=== PATIENT | male | born 1955 | race Caucasian/White ===

== ENCOUNTER 2021-03-21 16:24 | Outpatient (REF) | payer OTHER, SELFPAY ==
[2021-03-23 16:45] LABS: HLA-B27 Result Negative
[2021-03-27 18:29] LABS: Testosterone, Free 6.14 ng/dL (3.67-13.9); Testosterone, Total 267 ng/dL (240-950)
== END 2021-03-21 16:25 | disposition home or self-care (01) ==
LOC: LBN 16:24
PROVIDERS: PCP Family Medicine; Visit Provider Family Medicine
DX: M46.1 Sacroiliitis, not elsewhere classified (principal); Z00.00 Encounter for general adult medical examination without abnormal findings
CPT/HCPCS: 84402; 84403; 86812

== ENCOUNTER 2022-11-19 02:51 | Outpatient (CLI) | payer MEDICARE, SELFPAY ==
[2022-11-19 14:04] LABS: Abs Immature Grans 0.04 10^3/uL (0.0-0.06); Absolute Basophil Count 0.03 10^3/uL (0.0-0.2); Absolute Eosinophil Count 0.22 10^3/uL (0.0-0.7); Absolute Lymphocyte Count 1.46 10^3/uL (1.2-3.4); Absolute Monocyte Count 0.56 10^3/uL (0.1-0.8); Absolute Neutrophil Count 4.25 10^3/uL (1.2-6.7); Basophils % 0.5; Eosinophils % 3.4; HCT 41.5 % (40.0-50.0); HGB 15.3 g/dL (13.5-17.5); Immature Grans % 0.6; Lymphocytes % 22.3; MCHC 36.9 % (32.0-36.0); MCV 92 fL (80-95); MPV 9.1 fL (8.0-11.0); Monocytes % 8.5; Neutrophils % 64.7; Platelet Count 167 10^3/uL (130-400); RDW 11.8 % (11.8-14.1); RDW-SD 39.5 fL; WBC 6.56 10^3/uL (4.4-10.8)
[2022-11-19 14:31] LABS: ALT 23 U/L (16-63); AST 22 U/L (15-37); Albumin 3.9 g/dL (3.4-5.0); Alkaline Phosphatase 67 U/L (46-116); Anion Gap 6.7 mmol/L (3-11); BUN 23 mg/dL (7-18); Bilirubin, Total 1.5 mg/dL (0.2-1.0); CO2 29.3 mmol/L (21.0-32.0); CREATININE 1.1 mg/dL (0.70-1.30); Calcium 8.8 mg/dL (8.5-10.1); Chloride 104 mmol/L (98-107); Glucose 113 mg/dL (74-106); Sodium 140 mmol/L (136-145)
[2022-11-19 19:53] LABS: Lab Add On Test DONE
[2022-11-19 21:09] LABS: Hemoglobin A1C 4.7 % (<5.7)
== END 2022-11-19 02:52 | disposition home or self-care (01) ==
LOC: LBO 02:51
PROVIDERS: PCP Family Medicine; Visit Provider Family Medicine
DX: E03.9 Hypothyroidism, unspecified; R10.9 Unspecified abdominal pain; R73.9 Hyperglycemia, unspecified
CPT/HCPCS: 36415; 80053; 83036; 84443; 85025

== ENCOUNTER 2024-02-20 01:12 | Outpatient (CLI) | payer MEDICARE, SELFPAY ==
--- NOTE | 2024-02-20 | DI.US_ITS ---
Exam(s) US BREAST LT COMPLETE MG MAMMO DIAGNOSTIC BI EXAM: MG MAMMO DIAGNOSTIC BI AND COMPLETE LEFT BREAST ULTRASOUND CLINICAL HISTORY: evaluate pathology, LATERAL TO AREOLA LT BREAST MASS, N63.20. TECHNIQUE: BILATERAL CC AND MLO mammographic images were obtained with 3D tomosynthesis technique an d utilizing computer aided detection (CAD). COMPLETE LEFT BREAST ULTRASOUND was performed, including all 4 quadrants as well as the left axilla. COMPARISON: None. This 68-year-old male patient feels pain and fullness behind the left nipple. De nies nipple discharge FINDINGS: DIAGNOSTIC BILATERAL MAMMOGRAM: There are findings in both breasts consistent with typical gynecomastia, slightly more prominent on t he left side. There benign-appearing microcalcifications breasts. No significant architectural distortion or skin thickening-traction. COMPLETE LEFT BREAST ULTRASOUND: Ultrasound findings are that of typical gynecomastia in the retro-para region, corresponding to palpa ble finding. There is no discrete ominous mass. No abnormal fluid collections. No tissue edema. Scanning of the left axilla is negative for adenopathy IMPRESSION: There is bilateral gynecomastia, slightly more prominent on the left side. Recommend repeat scanning after appropriate clinical interval to determine if there is further progre ssion or regression BI-RADS Category 3 - 6 month - Probably Benign Finding: Recommend follow-up mammography in 6 months Breast Density - Category B - Scattered areas of fibroglandular density Breast density Category C or D implies that the patient has dense breast tissue. Dense breast tissue can make it harder to find cancer on a mammogram. Dense breast tissue is also associated with an incr eased risk of breast cancer. This information about the result of the mammogram report was provided to the patient to raise their awareness. Use this report when you speak with the patient about their risks for breast cancer, which includes their family history. At that time, you may recommend additional screening tests (Ultrasoun d or MRI) as these tests may add significant information. A negative radiographic report should not delay biopsy if a dominant or clinically suspicious mass is present. Up to ten percent of cancers are not identified on mammography. A negative report may reinforce clinical impression. Adenosis and dense breasts may obscure an underlying neoplasm. False positive reports average 6 to 10%. Patient will receive a letter notifying them of these results.
== END 2024-02-20 01:32 ==
PROVIDERS: PCP Family Medicine; Visit Provider Nurse Practitioner Family
DX: Z12.31 Encounter for screening mammogram for malignant neoplasm of breast (principal); N63.20 Unspecified lump in the left breast, unspecified quadrant
CPT/HCPCS: 76642; 77062; 77066; G0279

== ENCOUNTER 2024-09-01 02:47 | Outpatient (CLI) | payer MEDICARE, SELFPAY ==
--- NOTE | 2024-09-01 08:00 | DI.US_ITS ---
Exam(s) US BREAST LT COMPLETE US BREAST RT COMPLETE MG MAMMO DIAGNOSTIC BI EXAM: MG MAMMO DIAGNOSTIC BI and complete bilateral breast ultrasound CLINICAL HISTORY: 3-6 mo f/u,f/u abnl mammo, r92.8,z09, gyncecomastia. TECHNIQUE: Craniocaudal and mediolateral oblique Full Field Digital Mammography views of the bilater al breast with Computer Aided Diagnosis followed by Tomosynthesis and complete bilateral breast ultra sound. All 4 quadrants of the breasts were evaluated sonographically. The axilla and retroareolar r egions were also interrogated sonographically. COMPARISON: Comparison is made with prior examination from 02/20/2024. FINDINGS: Mammography/Tomosynthesis: Masses/Architectural Distortion: There is prominent subareolar breast tissue consistent with gynecoma stia. Microcalcifictions: No suspicious pleomorphic-type are seen. Skin benign type calcifications are pres ent bilaterally. Skin Thickening/Nipple Retraction: None. Complete bilateral breast US: Echotexture: Soft tissue is seen in the retroareolar regions bilaterally consistent with the diagnosi s of gynecomastia. Shadowing: No suspicious foci. Cyst: None. Solid lesions: None seen. Ductal dilation: None. IMPRESSION: 1. No evidence of malignancy is noted. 2. Findings are consistent with gynecomastia. 3. The findings were discussed with the patient on the date of the examination. BI-RADS Category 2 - Benign Findings Breast Density - Category C - Heterogeneously dense Breast density Category C or D implies that the patient has dense breast tissue. Dense breast tissue can make it harder to find cancer on a mammogram. Dense breast tissue is also associated with an incr eased risk of breast cancer. This information about the result of the mammogram report was provided to the patient to raise their awareness. Use this report when you speak with the patient about their risks for breast cancer, which includes their family history. At that time, you may recommend additional screening tests (Ultrasoun d or MRI) as these tests may add significant information. A negative radiographic report should not delay biopsy if a dominant or clinically suspicious mass is present. Up to ten percent of cancers are not identified on mammography. A negative report may reinforce clinical impression. Adenosis and dense breasts may obscure an underlying neoplasm. False positive reports average 6 to 10%. Patient will receive a letter notifying them of these results.
[2024-09-01 15:07] LABS: ALT 21 U/L (16-63); AST 16 U/L (15-37); Albumin 4.3 g/dL (3.4-5.0); Alkaline Phosphatase 58 U/L (46-116); Bilirubin, Direct 0.4 mg/dL (0.0-0.2); Bilirubin, Total 1.9 mg/dL (0.2-1.0); Total Protein 7.2 g/dL (6.4-8.2)
[2024-09-01 15:50] LABS: Calculated LDL 86 mg/dL (<100); Cholesterol 192 mg/dL (<200); HDL Cholesterol 99 mg/dL (>or=40); Triglyceride 39 mg/dL (<150)
[2024-09-02 10:42] LABS: HIV-1/2 Ag & Ab Screen Negative (Negative)
[2024-09-02 11:45] LABS: Hep B Core Antibody Positive (Negative); Hepatitis C Ab w Rflx HCV PCR Reactive (Negative)
[2024-09-03 12:42] LABS: HCV RNA Qualitative Undetected (Undetected)
== END 2024-09-01 02:48 | disposition home or self-care (01) ==
LOC: LBO 02:47
PROVIDERS: PCP Family Medicine; Visit Provider Family Medicine
DX: Z09 Encounter for follow-up examination after completed treatment for conditions other than malignant neoplasm (principal); R92.8 Other abnormal and inconclusive findings on diagnostic imaging of breast; Z11.59 Encounter for screening for other viral diseases; Z00.00 Encounter for general adult medical examination without abnormal findings; G72.89 Other specified myopathies; Z11.4 Encounter for screening for human immunodeficiency virus [HIV]; Z13.6 Encounter for screening for cardiovascular disorders
CPT/HCPCS: 36415; 76642; 77062; 77066; 80061; 80076; 86704; 86803; 87389; 87522; G0279